=== PATIENT | female | born 1955 | race Caucasian/White ===

== ENCOUNTER 2018-11-03 12:54 | Inpatient (IN) | payer OTHER, MEDICAID ==
[~2018-11-03] VITALS: Ht 154.9 cm; Wt 41.7 kg
[2018-11-03 12:57] VITALS: Ht 154.9 cm; Wt 41.7 kg
[2018-11-03 13:17] LABS: BASOPHIL % 0.3 % (0-2); PLATELET COUNT 290 x10^3mcL (130-400); RED CELL DISTRIBUTION WIDTH 13.1 % (11.5-14.5)
[2018-11-03 13:36] LABS: CALCIUM 9.1 mg/dL (8.5-10.1); CARBON DIOXIDE 26.7 mmol/L (21-32); CHLORIDE SERUM 107 mmol/L (98-107); CREATININE SERUM 0.8 mg/dL (0.6-1.0); GFR1 > 60 mL/min; GLUCOSE SERUM 133 mg/dL (74-106); POTASSIUM SERUM 4.1 mmol/L (3.5-5.1); SODIUM SERUM 144 mmol/L (136-145)
[2018-11-03 13:38] LABS: ALBUMIN 3.5 g/dL (3.4-5.0)
[2018-11-03 14:23] LABS: ALKALINE PHOSPHATASE 97 U/L (46-116); ALT/SGPT 21 U/L (14-59); AST/SGOT 20 U/L (15-37); BILIRUBIN TOTAL 0.53 mg/dL (0.20-1.00); TOTAL PROTEIN, SERUM 7.6 g/dL (6.4-8.2)
[2018-11-03] MEDS ORDERED: CYPROHEPTAD2 MG/5 M1 PO (14:40)
[2018-11-03] MEDS ORDERED: INCRUSE EL62.5 MCG/A IH (14:41)
[2018-11-03] MEDS ORDERED: ADVAIR HFA 115/1 AER IH (14:41)
[2018-11-03] MEDS ORDERED: KEPPRA500 MG PO (14:42)
[2018-11-03] MEDS ORDERED: EXELON4.6 MG/21 PO (14:43)
[2018-11-03 15:26] VITALS: BP 133/57
[2018-11-03 17:05] VITALS: BP 124/64
[2018-11-03 20:15] VITALS: BP 117/75
[2018-11-03 21:06] VITALS: BP 117/54
[2018-11-04 05:53] VITALS: BP 115/53
[2018-11-04 06:23] LABS: BASOPHIL % 0.2 % (0-2); PLATELET COUNT 221 x10^3mcL (130-400); RED CELL DISTRIBUTION WIDTH 13.3 % (11.5-14.5)
[2018-11-04 06:31] LABS: CALCIUM 8.6 mg/dL (8.5-10.1); CARBON DIOXIDE 25.7 mmol/L (21-32); CHLORIDE SERUM 111 mmol/L (98-107); CREATININE SERUM 0.6 mg/dL (0.6-1.0); GFR1 > 60 mL/min; GLUCOSE SERUM 142 mg/dL (74-106); POTASSIUM SERUM 4.1 mmol/L (3.5-5.1); SODIUM SERUM 144 mmol/L (136-145)
[2018-11-04 09:12] VITALS: BP 107/49
[2018-11-04 12:50] VITALS: BP 106/44
[2018-11-04] MEDS ORDERED: ZOFI IV (13:52)
[2018-11-04] MEDS ORDERED: SOL40I IV (13:52)
[2018-11-04] MEDS ORDERED: MUCINEX600 MG PO (13:53)
[2018-11-04] MEDS ORDERED: BUDESONIDE0.5 MG/2 M IH (13:53)
[2018-11-04] MEDS ORDERED: TYL325 PO (13:53)
[2018-11-04] MEDS ORDERED: ACETAMINOPHEN-H1 TA1 PO (13:53)
[2018-11-04] MEDS ORDERED: COL100 PO (13:53)
[2018-11-04] MEDS ORDERED: HEP5I SC (13:54)
[2018-11-04] MEDS ORDERED: IPRATROPIUM BROM3 M2 HHN ×2 (13:54)
[2018-11-04] MEDS ORDERED: LEVOFLOXACIN500 M1 PO (13:55)
[2018-11-04 14:19] VITALS: BP 106/44
[2018-11-04 16:43] VITALS: BP 109/34
[2018-11-04 22:10] VITALS: BP 106/47
[2018-11-05 05:31] VITALS: BP 107/55
[2018-11-05 06:43] LABS: CALCIUM 8.7 mg/dL (8.5-10.1); CARBON DIOXIDE 26.8 mmol/L (21-32); CHLORIDE SERUM 110 mmol/L (98-107); CREATININE SERUM 0.6 mg/dL (0.6-1.0); GFR1 > 60 mL/min; GLUCOSE SERUM 135 mg/dL (74-106); POTASSIUM SERUM 4.5 mmol/L (3.5-5.1); SODIUM SERUM 146 mmol/L (136-145)
[2018-11-05 08:06] LABS: BASOPHIL % 0.1 % (0-2); PLATELET COUNT 255 x10^3mcL (130-400); RED CELL DISTRIBUTION WIDTH 13.6 % (11.5-14.5)
[2018-11-05 08:29] VITALS: BP 106/49
[2018-11-05 12:20] VITALS: BP 102/58
[2018-11-05 16:30] VITALS: BP 102/58
[2018-11-05 17:33] VITALS: BP 137/58
== END 2018-11-05 18:40 | DRG 189 ==
LOC: ED 12:54 → DU 14:07
PROVIDERS: Emergency Medicine; ADMIT Internal Medicine
DX: J96.01 Acute respiratory failure with hypoxia (principal); J44.1 Chronic obstructive pulmonary disease with (acute) exacerbation; Z68.1 Body mass index [BMI] 19.9 or less, adult; G40.909 Epilepsy, unspecified, not intractable, without status epilepticus; F03.90 Unspecified dementia, unspecified severity, without behavioral disturbance, psychotic disturbance, mood disturbance, and anxiety; Z87.891 Personal history of nicotine dependence; Z86.73 Personal history of transient ischemic attack (TIA), and cerebral infarction without residual deficits
CPT/HCPCS: 36600; 83880; 92526-GN; 92610; J0171; J1644; J1956; J2920; J2930; J3475; J7030; J7050; J7613; J7620; J7626; J7644; Q0092